=== PATIENT | female | born 2000 | race Caucasian/White ===

== ENCOUNTER 2024-04-08 09:19 | Observation (INO) ==
[2024-04-08] MEDS: Lactated Ringers 1000 ml BAG 1,000 ML IV ONE ×2 (10:15→12:22)
[2024-04-08 10:23] LABS: ABS Eosinophils 0.1 10^3/uL (0.0-0.5); ABS Lymphocytes 1.1 10^3/uL (1.0-4.8); ABS Monocytes 1.3 10^3/uL (0.0-0.9); ABS Neutrophils 14.3 10^3/uL (1.5-7.6); Eosinophil % 0.4 %; Hematocrit 36.7 % (35-45); Hemoglobin 12.3 g/dL (11.5-14.3); Lymphocyte % 6.4 %; Mean Corpuscular Hemoglobin 31.1 pg (27-33); Mean Corpuscular Hgb Conc 33.6 g/dL (31-36); Mean Corpuscular Volume 92.6 fL (80-97); Mean Platelet Volume 7.6 fL (7.5-11.2); Platelet Count 348 10^3/uL (150-450); Red Blood Count 3.97 10^6/uL (3.63-4.92); Red Cell Distribution Width 12.4 % (12-17); White Blood Count 16.8 10^3/uL (3.8-11.8)
[2024-04-08 10:53] LABS: High Sens Troponin Baseline 142 pg/mL (<15)
[2024-04-08 11:05] LABS: ALT 14 U/L (7-52); Albumin/Globulin Ratio 1.6 (1-3); Alkaline Phosphatase 67 U/L (35-149); Anion Gap 7 mmol/L (2-16); Blood Urea Nitrogen 8 mg/dL (6-24); CO2 Carbon Dioxide 25 mmol/L (22-32); Calcium 8.8 mg/dL (8.6-10.3); Chloride 101 mmol/L (101-111); Creatinine, Serum 0.73 mg/dL (0.51-0.95); Globulin 2.5 g/dL (2-4); Glucose 83 mg/dL (70-100); Sodium 133 mmol/L (135-145); Total Bilirubin 1.1 mg/dL (0.2-1.0); Total Protein 6.5 g/dL (6.4-8.9); eGFR CKD-EPI 119.2 (>60)
[2024-04-08 12:06] LABS: Rapid Strep Molecular Positive (Negative)
[2024-04-08 12:23] LABS: Potassium Redraw 4.2 mmol/L (3.5-5.0)
[2024-04-08 13:06] LABS: HCG Pregnancy < 0.60 mIU/mL
[2024-04-08] MEDS: Benzocaine/Menthol LOZ MT ONE (13:51)
[2024-04-08] MEDS: Iohexol 350 (CONTRAST) 500 ML MDV IV ONE (14:13)
[2024-04-08 14:39] LABS: High Sensitivity Troponin 3 Hr 211 pg/mL (<15)
[2024-04-08] MEDS: Benzocaine/Menthol LOZ MT PRN (15:28)
[2024-04-08] MEDS: cefTRIAXone 1 gm/50 mL D5W 1 GM/50 ML BAG IV ONE (18:17)
[2024-04-08] MEDS: Benzocaine/Menthol LOZ PO ONE (20:49)
[2024-04-08] MEDS ORDERED: Sulfur Hexaflouride MICROSPHR 25 MG VIAL IV PRN (21:21)
[2024-04-08 22:23] LABS: Urine Benzodiazepine Screen None Detected (None Detect); Urine Cannabinoids Screen None Detected (None Detect); Urine Opiates Screen None Detected (None Detect)
[2024-04-09 08:17] LABS: Hematocrit 32.8 % (35-45); Hemoglobin 11.3 g/dL (11.5-14.3); Mean Corpuscular Hemoglobin 31.7 pg (27-33); Mean Corpuscular Hgb Conc 34.3 g/dL (31-36); Mean Corpuscular Volume 92.4 fL (80-97); Mean Platelet Volume 7.3 fL (7.5-11.2); Platelet Count 325 10^3/uL (150-450); Red Blood Count 3.55 10^6/uL (3.63-4.92); Red Cell Distribution Width 12.5 % (12-17); White Blood Count 17.8 10^3/uL (3.8-11.8)
[2024-04-09 09:56] LABS: ABS Lymphocytes 1.3 10^3/uL (1.0-4.8); ABS Monocytes 1.7 10^3/uL (0.0-0.9); ABS Neutrophils 14.8 10^3/uL (1.5-7.6); ABS Nucleated RBC 0.01 10^3/ul; Eosinophil % 0.1 %; Lymphocyte % 7.1 %
[2024-04-09 15:02] VITALS: BP 106/75
[2024-04-10 14:29] LABS: EBV Capsid Ag IgG Ab Positive (Negative); EBV Capsid Ag IgM Ab Negative (Negative); Epstein-Barr Nuclear Antigen Positive (Negative)
[2024-04-12 01:05] LABS: Anaplasma phagocytophilum Negative (Negative); B. miyamotoi PCR, B Negative (Negative); Babesia divergens/MO-1 Negative (Negative); Babesia ducani Negative (Negative); Ehrlichia chaffeensis Negative (Negative); Ehrlichia ewingii/canis Negative (Negative); Ehrlichia muris eauclairensis Negative (Negative)
== END 2024-04-09 15:16 | disposition home or self-care (01) ==
LOC: ED 09:19 → EDHOLD 09:19 → SUATTDRO 18:39 → MEDTELE 23:03
PROVIDERS: ADMIT Internal Medicine; ATTEND Internal Medicine